=== PATIENT | female | born 1980 | race Caucasian/White ===

== ENCOUNTER 2020-06-09 04:38 | Day surgery (SDC) | payer OTHER ==
[2020-06-07 12:35] VITALS: BMI 24.2
[2020-06-09] MEDS ORDERED: BUPIVACAINE HCL/PF 0.25% (2.5MG/ML) 10 ML VIAL ONE ×2 (07:22→07:23)
--- NOTE | 2020-06-09 08:32 | HP ---
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: Alzheimer's, CVA, Dementia, Migraine, Multiple Sclerosis, Peripheral Neuropathy, Parkinson's, Seizure, Syncope, TIA, Vertigo, Other Cardiovascular: No: AFIB, Aneurysm, Aortic Insufficiency, Aortic Stenosis, CAD, CHF, Deep Vein Thrombosis, HTN, Hyperlipdemia, RI, Mitral Insufficiency, Mitral Stenosis, Murmur, Pulmonary Hypertension, Other Pulmonary: No: Asthma, Bronchitis, Cancer, COPD, O2 Dependent, Pneumonia, Previously Intubated, Pulmonary Embolus, Pulmonary Fibrosis, Sleep Apnea, Other Gastrointestinal: No: Ascites, Cancer, Constipation, Crohn's Disease, Diverticulitis, Diverticulosis, Esophageal Varices, Gastritis, GERD, GI Bleed, Hemorrhoids, Hiatal Hernia, Inflamatory Bowel Disease, Irritable Bowel Disease, Pancreatitis, Peptic Ulcer Disease, Ulcerative Colitis, Other Hepatobiliary: No: Cirrhosis, Cholelithiasis, Cholecystitis, Choledocholithiasis, Hepatitis A, Hepatitis B, Hepatitis C, Other Renal/: No: Renal Failure, Renal Inusuff, BPH, Cancer, Hematuria, Hemodialysis, Neurogenic Bladder, Renal Calculi, UTI, Other Reproductive: No: Ectopic , Endometriosis, Fibroids, PID, Polycystic Ovary Syndrome, Postmenopausal, Other ...LMP: 12/26/19 ...LMP Comment: missed AB 02/2020 ...: No Infectious Disease: No: AIDS, C-Diff, Herpes Zoster, HIV, MRSA, STD's, Tuberculosis, VREF, Other Psych: No: Addictions, Anxiety, Bipolar, Depression, Panic, Psychosis, Schizophr enia, Other Musculoskeletal: No: Bursitis, Chronic low back pain, Hemiparesis, Hemiplegia, Osteoarthritis, Paraplegia, Other Rheumatology: No: Fibromyalgia, Gout, Lupus, Rheumatoid Arthritis, Sarcoidosis, Vasculitis, Other ENT: No: Allergic Rhinitis, Sinusitis, Other Endocrine: No: Quincy's Disease, Keatchie's Disease, Diabetes Insipidus, Diabetes Mellitus, Hyperparathyroidism, Hyperthyroidism, Hypothyroidism, Osteopenia, SIADH, Other Dermatology: No: Basal Cell, Cellulitis, Eczema, Melanoma, Psoriasis, Squamous Cell, Other - Past Surgical History Past Surgical History: No: None, AAA Repair, AICD, Amputation, Appendectomy, Arthrosocopy, AV Fistula/Graft, Bariatric Surgery, Breast Biopsy, Bypass, CABG, Carotid Endarterectomy, Cataract Removal, Cholecystectomy, Colectomy, Colonoscopy, Colostomy, Craniotomy, , Cystectomy, Hernia Repair, Hysterectomy, Ileal Conduit, Ileosotomy, Joint Replacement, Kidney Transplant, Laminectomy, Liver Transplant, Mastectomy, Nephrectomy, Oopherectomy, Orchiectomy, Permanent Pacemaker, Prostatectomy, Splenectomy, Stent, Thoracotomy, TURP, Tonsillectomy, Tubal Ligation, Upper Endoscopy, Valve Replacement, Vasectomy, Vein Stripping/Ligation - Smoking History Smoking history: Never smoked Have you smoked in the past 12 months: No - Alcohol/Substance Use Hx Alcohol Use: No - Social History History of Recent Travel: No Home Medications - Allergies Allergies/Adverse Reactions: Allergies Allergy/AdvReac Type Severity Reaction Status Date / Time No Known Allergies Allergy Verified 06/07/20 12:27 - Home Medications Home Medications: Ambulatory Orders Sertraline HCl [Zoloft -] 50 mg PO DAILY 06/07/20 Ibuprofen 600 mg PO Q6H PRN #30 tablet 06/09/20 Physical Examination Vital Signs: Vital Signs Temperature 98.0 F 06/09/20 06:27 Pulse Rate 66 06/09/20 06:27 Respiratory Rate 20 06/09/20 06:27 Blood Pressure 105/63 06/09/20 06:27 O2 Sat by Pulse Oximetry (%) 98 06/09/20 06:27 Assessment/Plan 39yo multip here for BTL NPO, IVFs SCDs Basurto Risk of procedure reviewed in Haitian with patient. All questions answered; con sents signed. Daniele Nath MD
[2020-06-09] MEDS ORDERED: DEXAMETHASONE SOD PHOSPHATE 4 MG/1 ML VIAL ONE (08:39)
[2020-06-09] MEDS ORDERED: KETOROLAC TROMETHAMINE 30 MG/1 ML VIAL ONE (08:39)
[2020-06-09] MEDS ORDERED: LIDOCAINE HCL/PF 2% SDV 5ML VIAL ONE (08:39)
[2020-06-09] MEDS ORDERED: PROPOFOL 20 ML ONE (08:40)
[2020-06-09] MEDS ORDERED: ROCURONIUM BROMIDE 50 MG/5 ML SYRINGE ONE (08:40)
[2020-06-09] MEDS ORDERED: fentaNYL CITRATE 250 MCG/5 ML VIAL ONE (08:40)
[2020-06-09] MEDS ORDERED: MIDAZOLAM HCL 2 MG/2 ML SINGLE DOSE VIAL ONE (08:42)
[2020-06-09] MEDS ORDERED: BUPIVACAINE HCL 0.25% 125 MG/50 ML VIAL NR ONE (09:16)
[2020-06-09] MEDS ORDERED: NEOSTIGMINE METHYLSULFATE 0.5 MG/ML - 10 ML MDV ONE (09:25)
[2020-06-09] MEDS ORDERED: ONDANSETRON 4 MG/2 ML VIAL IVPUSH PRN (09:41)
[2020-06-09] MEDS ORDERED: PROMETHAZINE HCL 25 MG/1 ML VIAL IVPUSH PRN (09:41)
[2020-06-09] MEDS ORDERED: oxyCODONE HCL 5 MG TABLET PO PRN (09:41)
--- NOTE | 2020-06-09 09:52 | OP ---
Operative Note - Note: Operative Date: 06/09/20 Pre-Operative Diagnosis: Desires Permanent Sterilization Operation: Laparoscopic Bilateral Salpingectomy Findings: Normal uterus, normal fallopian tubes and ovaries bilaterally Surgeon: Janeen Nath Phys Assistant: Rafal Meade Anesthesiologist/PERFECT BIND MACHINE OPERATOR: Alan Byrne Anesthesia: General Estimated Blood Loss (mls): 15 Drains, Volume Out (mls): 100 (clear urine) Operative Report Dictated: Yes
--- NOTE | 2020-06-09 09:58 | SURG ---
Surgery Hand Quilter Note Hand Quilter: Rafal Meade PA-C Date of Service: 06/09/20 Diagnosis: Desires Permanent Sterilization Procedure: Laparoscopic Bilateral Salpingectomy I was present for the entirety of the operative procedure. For further detail, please refer to operative report. Visit type - Case Type Case Type: Scheduled - Emergency Emergency Visit: No - New patient This patient is new to me today: Yes Date on this admission: 06/09/20 - Critical Care Critical Care patient: No
[2020-06-09] MEDS ORDERED: BACITRACIN 15 GM TUBE TOPICAL OINTMENT ONE (11:17)
--- NOTE | 2020-06-09 13:36 | OP ---
DATE OF OPERATION: 06/09/2020 PREOPERATIVE DIAGNOSIS: Desires permanent sterilization. POSTOPERATIVE DIAGNOSIS: Desires permanent sterilization. PROCEDURE: Laparoscopic bilateral salpingectomy. ANESTHESIA: General. ANESTHESIOLOGIST: Alan Byrne MD SURGEON: Janeen Nath MD TERMINAL SYSTEM OPERATOR: JEANETTE Bhatti ESTIMATED BLOOD LOSS: 15. URINE OUTPUT: Clear urine 100 mL at the end of the procedure. FINDINGS: Normal uterus. Normal fallopian tubes and ovaries bilaterally. COMPLICATIONS: None. CONDITION: Stable to recovery room. NATURE OF THE PROCEDURE: After the appropriate consented were signed, patient was taken to the operating room. General anesthesia was administered. She was placed in the dorsal lithotomy position. The abdomen was prepped and draped in the normal sterile fashion. A sterile Basurto catheter was inserted into the bladder. A timeout was performed, confirming correct patient and procedure. Marcaine 0.25% was injected into the umbilicus; and using a 15-blade scalpel, a 5-mm incision was made into the umbilicus to accommodate the 5-mm laparoscope which was inserted under direct visualization. Correct placement was confirmed. The abdomen was then insufflated with gas. The patient was placed in Trendelenburg position. A left lower quadrant 5-mm port was inserted under direct visualization as was a right 5-mm port. The bowel was swept from the patient's pelvis. The uterus was elevated. The fallopian tube on the patient's left was grasped, carried through to the fimbriated edges and noted to be normal. In subsequent bites along the mesosalpinx and broad ligament, the patient's left fallopian tube was then removed and then removed from the patient's abdomen through the left lower quadrant port. Attention was then paid to the patient's right fallopian tube, which was grasped with the grasper, carried through to the fimbriated edges and also noted to be normal. Using subsequent bites with the LigaSure along the patient's mesosalpinx and broad ligament until its insertion at the uterus, the fallopian tube was then freed and then removed through the patient's right lower quadrant port. The bite sites were inspected bilaterally and noted to be hemostatic. The abdomen was deflated of gas. Bite sites were noted to still be hemostatic. The left lower quadrant and right lower quadrant ports were removed. The abdomen was further deflated of gas. The umbilical port was then removed. All ports were closed with a 4-0 Biosyn. Bandages were applied. Basurto catheter was removed in the OR. Patient was taken out of Trendelenburg position. She was taken from the operating room to the recovery area in stable condition. MD FERNANDEZ DE LA TORRE/[id number]
[2020-06-09 14:26] VITALS: BP 107/71; PULSE 74; TEMP 98.2
--- NOTE | 2020-06-13 15:48 | PATH ---
Surgical Pathology Report Patient Name: NIR LEWIS [facility]. Rec. #: [id number] /Age/Gender: 1980 (Age: 39) / F Account: [id number] Location: [facility] SURGICAL Taken: 06/09/2020 Received: 06/09/2020 Reported: 06/13/2020 Physicians: Janeen Nath Specimen(s) Received A: RIGHT FALLOPIAN TUBE B: LEFT FALLOPIAN TUBE Clinical History Sterilization Final Diagnosis A. RIGHT FALLOPIAN TUBE, SALPINGECTOMY: PORTION OF FALLOPIAN TUBE WITH NO SIGNIFICANT PATHOLOGIC CHANGE. COMPLETE CROSS SECTION OF FALLOPIAN TUBE LUMEN IDENTIFIED. B. LEFT FALLOPIAN TUBE, SALPINGECTOMY: PORTION OF FALLOPIAN TUBE WITH ENDOSALPINGIOSIS. COMPLETE CROSS SECTION OF FALLOPIAN TUBE LUMEN IDENTIFIED. Electronically Signed Aiyana Hoff M.D. Gross Description A. Received in formalin labeled "right fallopian tube," is a 5cm in length fimbriated fallopian tube. The outer surface is mendoza-tony. Sectioning reveals an unremarkable lumen. Shade Bander sections are submitted in 2 cassettes as follows: 1-fimbria; 2-cross sections of fallopian tube. B. Received in formalin labeled "left fallopian tube," is a 6 m in length fimbriated fallopian tube. The outer surface is mendoza-tony. Sectioning reveals an unremarkable lumen. Shade Bander sections are submitted in 2 cassettes as follows: 1-fimbria; 2-cross sections of fallopian tube. MLSZ/06/09/2020 san[facility]/06/09/2020
== END 2020-06-09 14:27 | disposition home or self-care (01) ==
LOC: JASU-SURG 04:38
PROVIDERS: ATTEND Obstetrics & Gynecology
PROC: 0U574ZZ Destruction of Bilateral Fallopian Tubes, Percutaneous Endoscopic Approach (ICD-10-PCS; principal; 2020-06-09 08:00)
DX: Z30.2 Encounter for sterilization (principal)
CPT/HCPCS: 81025; 88302-TC; 94760